=== PATIENT | male | born 1955 | race Caucasian/White ===

== ENCOUNTER 2021-06-29 14:00 | Outpatient (CLI) | payer MEDICARE, OTHER, SELFPAY ==
--- NOTE | ~2021-06-29 | US_ITS ---
EXAMINATION: US art doppler w press LE BI DATE: 06/29/2021 16:05 INDICATION: Peripheral vascular disease with numbness and tingling at the bilateral feet. TECHNIQUE: Segmental pressures and plethysmographic and Doppler waveforms of the brachial and lower e xtremity arteries were obtained. COMPARISON: None. FINDINGS: Cardiac arrhythmia is present. Right and left brachial artery pressures of 132 mm Hg and 120 mm Hg, r espectively, are concordant (normal difference <= 30 mmHg). The right and left high-thigh pressure in dices were unable to be obtained due to inability to occlude the vessels (normal > 1.2). The right ankle-brachial index (AYANNA) is 1.08 (normal >= 0.9-1). The right great toe-brachial index (T BI) is 0.70 (normal >= 0.6-0.8). The right lower extremity segmental pressure gradients are borderlin e increased between the right [id number]-bwx-[id number] popliteal artery and the arteries at the right ankle (no rmal gradients <= 20-30 mmHg between adjacent levels on the same leg or the same levels on the two le gs). Arterial waveforms are biphasic at the right common femoral, superficial femoral, popliteal and posterior tibial arteries and biphasic at the right dorsalis pedis artery with brisk systolic upstrok es throughout.. The left AYANNA is 1.20. The left TBI is 0.76. The left lower extremity segmental pressure gradients are borderline increased between the left bulb and okrot-bbu-kthq popliteal arteries. Arterial waveforms are triphasic at the left common femoral, superficial femoral and popliteal arteries and biphasic at the left posterior tibial and dorsalis pedis arteries with brisk systolic upstrokes throughout. IMPRESSION: 1. Normal AYANNA's and TBI's bilaterally. No significant occlusive disease. 2. Cardiac arrhythmia is present. Correlate with EKG. Reviewed, dictated and finalized at location A.
== END 2021-06-29 14:01 | disposition home or self-care (01) ==
LOC: ANHIMG 14:06
PROVIDERS: PCP Internal Medicine; Visit Provider Podiatrist Foot & Ankle Surgery
DX: I70.203 Unspecified atherosclerosis of native arteries of extremities, bilateral legs (principal); I49.9 Cardiac arrhythmia, unspecified
CPT/HCPCS: 93923

== ENCOUNTER 2023-05-04 01:26 | Day surgery (SDC) | payer MEDICARE, SELFPAY ==
[2023-04-25 13:11] VITALS: BMI 27.1
--- NOTE | 2023-05-03 20:48 | PM.HPGS ---
History of Present Illness History of Present Illness Consent: Risks, benefits, and alternatives have been discussed and questions answered. Patient agrees to proceed with procedure. Chief complaint: neoplasm screening Narrative: Isaias Mcclain is a 68 year old male who is referred for colon cancer screening. Review of Systems Review of Systems: All systems reviewed & are unremarkable except as noted in HPI and below PMFSH Social History Social History Smoking status: Never smoker Alcohol intake: current Drinks per week: 3 Substance use type: does not use Living arrangements: with family Spiritual care concerns: No Meds Home Medications and Allergies Home Medications Medication Instructions Recorded Confirmed Type ascorbic acid (vitamin C) 500 mg 500 mg PO DAILY 04/26/23 05/04/23 History tablet (Vitamin C) aspirin 325 mg tablet 325 mg PO DAILY 04/26/23 05/04/23 History atorvastatin 10 mg tablet 10 mg PO DAILY 04/26/23 05/04/23 History cholecalciferol (vitamin D3) 125 125 mcg PO DAILY 04/26/23 05/04/23 History mcg (5,000 unit) tablet (Vitamin D3) coQ10 (ubiquinol) 100 mg capsule 100 mg PO BID 04/26/23 05/04/23 History metoprolol tartrate 25 mg tablet 5 mg PO DAILY PRN Atrial 04/26/23 05/04/23 History Fibrillation vitamin B complex 1 tablet PO DAILY 04/26/23 05/04/23 History Allergies Allergy/AdvReac Type Severity Reaction Status Date / Time No Known Allergies Allergy Unverified 05/04/23 09:46 Exam Resp: Auscultation: clear to auscultation bilaterally Cardio: Rate: regular rate Rhythm: regular rhythm GI: GI Palp: Yes Soft to palpation and No Tenderness to palpation present (GI) Assessment and Plan Assessment and plan (1) Colon cancer screening: Code(s): Z12.11 - Encounter for screening for malignant neoplasm of colon Status: Acute Assessment and Plan: Colonoscopy with possible biopsy or polypectomy or cautery or injection of substances.
[2023-05-04 09:50] VITALS: BP 152/72; PULSE 63; RESP 18; TEMP 36.6; O2SAT 100
[2023-05-04] MEDS: LACTATED RINGERS 1,000 ML 150 ML IV CONT (09:52)
--- NOTE | 2023-05-04 10:35 | P.PNAN_ITS ---
Anes - Initial Pre Proc Eval Procedure: Operation Date: 05/04/23 11:00 Proposed Procedures p Screening Colonoscopy - Kem Day MD Date/Time: 05/04/23 10:35 Surgeon: Kem Day MD Pre Op Diagnosis: neoplasm screening Patient Data Age: 68 Gender: M Height: 1.85 m Weight: 92.3 kg Last Vital Signs Temp 97.9 F 05/04/23 09:50 Pulse 63 05/04/23 09:50 Resp 18 05/04/23 09:50 BP 152/72 H 05/04/23 09:50 Pulse Ox 100 05/04/23 09:50 O2 Del Method Room Air 05/04/23 09:50 Allergies Allergy/AdvReac Type Severity Reaction Status Date / Time No Known Allergies Allergy Unverified 05/04/23 09:46 Home Medications Medication Instructions Recorded Confirmed Type ascorbic acid (vitamin C) 500 mg 500 mg PO DAILY 04/26/23 05/04/23 History tablet (Vitamin C) aspirin 325 mg tablet 325 mg PO DAILY 04/26/23 05/04/23 History atorvastatin 10 mg tablet 10 mg PO DAILY 04/26/23 05/04/23 History cholecalciferol (vitamin D3) 125 125 mcg PO DAILY 04/26/23 05/04/23 History mcg (5,000 unit) tablet (Vitamin D3) coQ10 (ubiquinol) 100 mg capsule 100 mg PO BID 04/26/23 05/04/23 History metoprolol tartrate 25 mg tablet 5 mg PO DAILY PRN Atrial 04/26/23 05/04/23 History Fibrillation vitamin B complex 1 tablet PO DAILY 04/26/23 05/04/23 History Patient hx anesthesia problems: none Family hx anesthesia problems: none Results Review: All pre-operative results and documents have been reviewed as part of the pre- operative evaluation. FORMERLY [facility], [facility]–1983 Social History Social History Smoking status: Never smoker Alcohol intake: current Drinks per week: 3 Substance use type: does not use Living arrangements: with family Spiritual care concerns: No Anes - Eval Final PreProcedure Day of Procedure 05/04/23 10:35 Patient weight: normal Heart: regular rate and rhythm Lungs: clear to auscultation Airway: Mallampati scale class II Neurological: alert and oriented Last oral intake: >/= 8 hours ASA classification: III Emergent: no Anesthetic plan: proceed Anesthesia type and monitoring: general GIVS and standard monitoring Results Review: All pre-operative results and documents have been reviewed as part of the pre- operative evaluation. Informed Consent: The patient's anesthetic plan and its attendant risks and benefits were discussed with the patient/family/POA. Questions were solicited and answers provided to the satisfaction of the patient/family/POA.
[2023-05-04 11:04] VITALS: BP 102/68; PULSE 60; RESP 16; O2SAT 96
[2023-05-04 11:14] VITALS: BP 108/71; PULSE 63; RESP 19; O2SAT 99
[2023-05-04 11:24] VITALS: BP 119/74; PULSE 63; RESP 21; O2SAT 99
== END 2023-05-04 11:28 | disposition home or self-care (01) ==
PROVIDERS: PCP Internal Medicine; Visit Provider Internal Medicine Gastroenterology
PROC: 0DJD8ZZ Inspection of Lower Intestinal Tract, Via Natural or Artificial Opening Endoscopic (ICD-10-PCS; CPT 45378; principal; 2023-05-04 11:00)
DX: Z12.11 Encounter for screening for malignant neoplasm of colon (principal); K64.8 Other hemorrhoids; Z79.82 Long term (current) use of aspirin
CPT/HCPCS: G0121; J2704; J7120

== ENCOUNTER 2023-07-16 13:58 | Observation (INO) | payer MEDICARE, OTHER, SELFPAY ==
[2023-07-16] VITALS (22 sets, daily range): BP systolic 133–153; BP diastolic 66–86; PULSE 52–94; RESP 16–18; TEMP 36.4–36.6; O2SAT 95–100; BMI 26.8
--- NOTE | ~2023-07-16 | CT_ITS ---
EXAMINATION: CT brain wo con DATE: 07/16/2023 15:52 INDICATION: Dizziness . TECHNIQUE: Computed tomography (CT) of the head was performed without intravenous contrast. The mA wa s adjusted according to patient size. Iterative reconstruction technique was employed. The dose-lengt h product was 605.33 mGy-cm. COMPARISON: None. FINDINGS: No acute intracranial hemorrhage or extra-axial fluid collection. No hydrocephalus, mass, or herniation. No acute ischemic infarct. Unremarkable dural venous sinus attenuation. No acute osseous abnormality. The aerated spaces are clear. Atherosclerotic intracranial calcifications. IMPRESSION: No acute intracranial process. Reviewed, dictated and finalized at location K.
--- NOTE | ~2023-07-16 | MR_ITS ---
EXAMINATION: MR brain/brain stem wo/w con DATE: 07/17/2023 08:41 INDICATION: Dizziness with double vision TECHNIQUE: Magnetic resonance imaging (MRI) of the brain and brainstem was performed without and with 18 mL MultiHance intravenous contrast. Sequences included sagittal and axial T1-weighted SE, axial d iffusion-weighted FS EPI ASSET, axial T2*-weighted GRE, axial T2-weighted FLAIR Propeller, and axial T2-weighted Propeller. Postcontrast axial and coronal T1-weighted SE was obtained. Apparent diffusion coefficient (ADC) maps were created. COMPARISON: CT brain and CTA brain carotid 07/16/2023. FINDINGS: No abnormal restricted diffusion to suggest acute ischemic infarct. No MRI evidence of hemorrhage or extra-axial collection. No suspicious foci of susceptibility to suggest prior intraparenchymal hemorr debbie. Normal white matter signal. No evidence of advanced or lobar predominant parenchymal volume los s. The basilar cisterns are patent. Flow voids are preserved. Retention cyst/polyp in the left maxill jasmine sinus. Paranasal sinuses are otherwise within normal limits. Globes and orbital contents are with in normal limits. No abnormal enhancing lesions detected. IMPRESSION: Unremarkable MRI brain findings. Reviewed, dictated and finalized at location K.
--- NOTE | ~2023-07-16 | XR_ITS ---
EXAMINATION: XR chest 1V portable Exam Date/Time: 07/16/2023 15:37 CDT HISTORY: Dizziness Comparison: 04/30/2018. RESULT: Lines, tubes, and devices: None. Lungs and pleura: Clear. Cardiomediastinal silhouette: Stable. Other: No acute osseous or upper abdominal finding. IMPRESSION: No acute cardiopulmonary process. Reviewed, dictated and finalized at location K.
--- NOTE | ~2023-07-16 | CT_ITS ---
EXAMINATION: CTA brain carotid DATE: 07/16/2023 17:27 INDICATION: Double vision TECHNIQUE: Computed tomographic angiography (CTA) of the head and neck was performed with 100 mL Omni paque-350 intravenous contrast. Automated exposure control and iterative reconstruction technique wer e employed. . The dose-length product was 1223.00 mGy-cm. Maximum intensity projection and volume re ndered 3D-reconstructions were created by the technologist on a separate workstation. COMPARISON: CT brain, same date. FINDINGS: CTA HEAD: No large vessel occlusion, aneurysm, high flow vascular malformation, nidus or extravasation. Patent cerebral veins. Symmetric parenchymal enhancement. CTA NECK: Aortic arch and proximal great vessels: Normal arch anatomy. Right common carotid, carotid bifurcation, and internal carotid artery: No significant plaque.There i s 0% stenosis of the proximal right internal carotid artery relative to normal distal artery lumen di ameter (NASCET criteria). Left common carotid, carotid bifurcation, and internal carotid artery: No significant plaque.There is 0% stenosis of the proximal left internal carotid artery relative to normal distal artery lumen diam eter (NASCET criteria). Vertebral arteries: No significant plaque or stenosis. Right vertebral artery is dominant, Other findings: Degenerative change in the cervical spine. Retention cyst/polyp in the left inferior maxillary sinus. IMPRESSION: No large vessel occlusion. No significant carotid or vertebral artery stenosis. Reviewed, dictated and finalized at location K.
--- NOTE | 2023-07-16 15:08 | ED.DIZZY ---
HPI - Dizziness General Chief Complaint: Dizziness Stated Complaint: dizziness, lightheaded Time Seen by Provider: 07/16/23 15:07 Source: patient and family Mode of arrival: ambulatory Limitations: no limitations History of Present Illness HPI Narrative: 68 years old white male presented to the ED with lightheadedness and double vision. Patient was doing some work inside the house like cleaning dishes, developed lightheadedness around 9 AM, few minutes later developed double vision which resolves when he closes either eye. He denies any fever, chills, nausea, vomiting, headache, chest pain, shortness of breath, palpitation. Or similar symptoms. Patient's symptoms have been steady since the beginning until arrival to the emergency room. History of paroxysmal A-fib, currently on aspirin 324 mg once a day. Patient had 2 tablets today after he developed the above symptoms. History of hyperlipidemia, does not smoke or uses drugs, drinks occasionally. Patient have peripheral flashlight like feeling 2 months ago and was seen by his food safety coordinator and work-up showed nothing significant. He does not have that feeling anymore. Related Data Home Medications Medication Instructions Recorded Confirmed ascorbic acid (vitamin C) 500 mg 500 mg PO DAILY 04/26/23 05/04/23 tablet (Vitamin C) aspirin 325 mg tablet 325 mg PO DAILY 04/26/23 05/04/23 atorvastatin 10 mg tablet 10 mg PO DAILY 04/26/23 05/04/23 cholecalciferol (vitamin D3) 125 125 mcg PO DAILY 04/26/23 05/04/23 mcg (5,000 unit) tablet (Vitamin D3) coQ10 (ubiquinol) 100 mg capsule 100 mg PO BID 04/26/23 05/04/23 metoprolol tartrate 25 mg tablet 5 mg PO DAILY PRN Atrial 04/26/23 05/04/23 Fibrillation vitamin B complex 1 tablet PO DAILY 04/26/23 05/04/23 Allergies Allergy/AdvReac Type Severity Reaction Status Date / Time No Known Allergies Allergy Unverified 07/16/23 13:59 Review of Systems Review of Systems: All systems reviewed & are unremarkable except as noted in HPI and below PMFSH Social History Social History Smoking status: Never smoker Alcohol intake: current Drinks per week: 3 Substance use type: does not use Living arrangements: with family Spiritual care concerns: No Exam Narrative: General appearance: Well-developed, well-nourished Skin: Normal color Head: Normocephalic, nontraumatic Eyes: Clear conjunctiva, left eye horizontal nystagmus ENT: Oropharynx normal, ears normal, nose normal Neck: Supple, nontender Chest and respiratory: Airway patent, no respiratory distress, no accessory muscle use Heart: Regular rate/rhythm Abdomen: Soft, nontender, no organomegaly, quiet bowel sounds Vascular: Normal peripheral pulses, normal capillary refill. Musculoskeletal: Normal range of motion, nontender back Neurologic: Alert and oriented ?3, BILINGUAL SALES CONSULTANT is normal as tested, no gross motor deficit Course Reevaluation(s) Reevaluation #1: Patient's symptoms are the same since arrival to the emergency room until this minute. Date: 07/16/23 Time: 17:03 Consultations Consultation #1: Dr. Li, food safety coordinator at [facility] He states that nothing can be done at this time or over the weekend. Patient need to call the ophthalmology clinic which is opened 8 to 5 PM, phone #[phone] on Tuesday morning. After hour clinic [phone] Date: 07/16/23 Time: 19:32 Consultation #2: Dr. Cardenas Admit to hospitalist Date: 07/16/23 Time: 19:32 Vital Signs Vital signs: Vital Signs Pulse Oximetry 97 07/16/23 14:05 Temperature 36.4 C L 07/16/23 14:18 Pulse Rate 53 L 07/16/23 19:19 Respirator
--- NOTE | 2023-07-16 15:09 | ECG_ITS ---
Measurements Intervals [place] Rate: 51 P: 59 [place]: 194 QRS: 18 QRSD: 90 T: 21 QT: 438 QTc: 406 Interpretive Statements SINUS BRADYCARDIA LOW VOLTAGE- PRECORDIAL LEADS BORDERLINE ECG NO PREVIOUS ECG AVAILABLE FOR COMPARISON Electronically Signed On 07-16-2023 20:29:03 CDT by Eric Robbins D.O.
[2023-07-16 15:45] LABS: Basophils Percent Auto 0.6 % (0.2-1.2); Eosinophils Absolute Auto 0.1 K/mm3 (0-0.3); Eosinophils Percent Auto 1.8 % (0-4.4); Hematocrit 43.6 % (42.0-52.0); Hemoglobin 14.8 g/dL (14.0-18.0); Immature Granulocyte Absolute 0.01 K/mm3 (0.00-0.031); Immature Granulocyte Percent A 0.2 % (0-0.5); Lymphocytes Absolute Auto 1.34 K/mm3 (0.9-3.2); Lymphocytes Percent Auto 21.4 % (18.3-44.2); Mean Corpuscular HGB Conc 33.9 g/dl (32-36); Mean Corpuscular Volume 91.4 fl (80-100); Mean Platelet Volume 9.4 fl (7.4-10.4); Monocytes Absolute Auto 0.5 K/mm3 (0.1-0.6); Monocytes Percent Auto 8.1 % (2.6-8.5); Neutrophils Absolute Auto 4.3 K/mm3 (1.3-6.7); Neutrophils Percent Auto 67.9 % (45.5-73.1); Platelet Count Result 195 k/mm3 (150-375); Red Blood Count 4.77 M/mm3 (4.6-6.20); White Blood Count 6.3 K/mm3 (4.5-10.0)
[2023-07-16 15:47] LABS: Appearance Urine Clear (Clear); Bilirubin Urine Negative (Negative); Blood Urine Negative (Negative); Color Urine Yellow (Yellow); Glucose Urine UA Negative (Negative); Ketones Urine Negative (Negative); Leukocyte Esterase Ur Negative LEU/UL (Negative); Nitrate Urine Negative (Negative); Protein Urine Negative (Negative); Specific Grav Ur 1.021 (1.001-1.035); Urobilinogen Urine 0.2 mg/dL (<2.0)
[2023-07-16 15:56] LABS: Prothrombin Time 13.1 Seconds (11.1-14.7)
[2023-07-16 16:00] LABS: Add Urine Microscopic? NO
[2023-07-16 16:02] LABS: Amphetamine Screen Urine Negative (Negative); Barbiturate Screen Urine Negative (Negative); Benzodiazepines Screen Urine Negative (Negative); Cannabinoid Screen Urine Negative (Negative); Cocaine Screen Urine Negative (Negative); Methadone Screen Urine Negative (Negative); Opiate Screen Urine Negative (Negative); Phencyclidine Screen Urine Negative (Negative)
[2023-07-16 16:04] LABS: Alanine Aminotransferase 28 U/L (6-50); Albumin Level 4.3 g/dL (3.5-5.1); Alkaline Phosphatase 57 U/L (38-126); Anion Gap 1 mmol/L (8-16); Aspartate Amino Transferase 35 U/L (17-59); Bilirubin,Total 1.3 mg/dL (0.2-1.3); Blood Urea Nitrogen 23 mg/dL (9-20); Calcium 9.3 mg/dL (8.4-10.2); Carbon Dioxide 32 mmol/L (22-30); Chloride 107 mmol/L (98-107); Estimated CRCL calculation 55 ml/min; Estimated Glomerular Filt Rate 55; Glucose 111 mg/dL (65-110); Potassium 4.4 mmol/L (3.4-5.0); Sodium 140 mmol/L (137-145)
[2023-07-16 16:16] LABS: Troponin I < 0.012 ng/mL (0.000-0.034)
--- NOTE | 2023-07-16 21:23 | ADMGEN ---
This patient, Isaias Mcclain, was admitted to Medical Room 241-01. Patient/family oriented to hospital policies and general routines including ID bracelet, bed and alarms, visiting hours, pain management, procedures, bathroom and other care routines, personal items, smoking policy, room service/diet, and visiting hours. Information on how to activate the Rapid Response Team has been discussed. Patient/Family are encouraged to report perceived risks to care and to ask questions if they do not understand what they are told or what they should do.
--- NOTE | 2023-07-16 23:37 | PM.IMHP ---
H&P: HPI History of Present Illness Date/Time: 07/16/23 23:37 Chief Complaint: Patient came to the ER for evaluation for his lightheadedness and double vision Narrative: He is a very pleasant gentleman who was working inside the house today cleaning dishes when he developed lightheadedness around 9:00 a.m., and a few minutes later he started double vision which resolved when he closes either eye. He got concerned and came to the ER for evaluation. He has a history of persistent atrial fibrillation for which he takes aspirin. He took 2 aspirins today after he developed above symptoms. He has his heart rate monitoring through his watch which indicates if he goes into AFib, which has not kicked off today. He had one episode of peripheral flash light feeling 2 months ago and was seen by a local boring machine set up operator jig and workup was negative. He does not complain of any such feeling any more. ER physician did a stroke workup which was negative. ER physician spoke with the boring machine set up operator jig in [facility] who recommended MRI in the morning followed by ophthalmology evaluation locally or in [facility]. Neurology was consulted who had similar recommendations. Patient is being admitted overnight for close monitoring and MRI in a.m. Review of Systems Review of Systems: he denies any chest pain, palpitation, fever rigor chills, nausea vomiting, dizziness loss of consciousness All systems reviewed & are unremarkable except as noted in HPI and below PMFSH Past Medical History Medical History (Updated 07/16/23 @ 23:56 by Hiram Tellez MD) Paroxysmal atrial fibrillation Family History Family History Mother Congestive heart failure Renal cancer Father Hypertension Lung cancer Social History Social History Smoking status: Never smoker Alcohol intake: never Drinks per week: 3 Substance use: never Substance use type: does not use Lack of Transportation: No Lack of Food: Never True Current Housing: I Have Housing Concerned About Future Housing: No Difficulty Paying Gas/Electric Bills: No Difficulty Paying for Meds: No Currently Unemployed: No Education: Bachelor's Degree Difficulty w/ Childcare or Family Care: No Living arrangements: with family Spiritual care concerns: No Meds Home Medications and Allergies Home Medications Medication Instructions Recorded Confirmed Type ascorbic acid (vitamin C) 500 mg 500 mg PO DAILY 04/26/23 07/16/23 History tablet (Vitamin C) aspirin 325 mg tablet 325 mg PO DAILY 04/26/23 07/16/23 History atorvastatin 10 mg tablet 20 mg PO DAILY 04/26/23 07/16/23 History cholecalciferol (vitamin D3) 125 125 mcg PO DAILY 04/26/23 07/16/23 History mcg (5,000 unit) tablet (Vitamin D3) coQ10 (ubiquinol) 100 mg capsule 100 mg PO BID 04/26/23 07/16/23 History metoprolol tartrate 25 mg tablet 5 mg PO DAILY PRN Atrial 04/26/23 07/16/23 History Fibrillation vitamin B complex 1 tablet PO DAILY 04/26/23 07/16/23 History Allergies Allergy/AdvReac Type Severity Reaction Status Date / Time No Known Allergies Allergy Unverified 07/16/23 13:59 Vital Signs Vital Signs - 24 hr 07/16/23 14:18 07/16/23 14:05 07/16/23 14:15 Temperature 36.4 C L Pulse Rate 53 L Respiratory Rate 17 Blood Pressure 151/80 H Pulse Oximetry 100 97 98 Oxygen Delivery Room Air 07/16/23 14:25 07/16/23 14:30 07/16/23 14:31 Temperature Pulse Rate Respiratory Rate Blood Pressure 151/80 H 151/73 H Pulse Oximetry 99 99 100 Oxygen Delivery 07/16/23 14:45 07/16/23 15:02 07/16/23 15:15 Temperature Pulse Rate Respiratory Rate Blood Pressure Pulse Oximetry 96 99 95 Oxygen Delivery 07/16/23 15:30 07/16/23 15:53 07/16/23 15:54 Temperature Pulse Rate Respiratory Rate Blood Pressure 143/66 H Pulse Oximetry 100 99 100 Oxygen Del
[2023-07-17] VITALS (7 sets, daily range): BP systolic 120–139; BP diastolic 66–73; PULSE 50–73; RESP 14–16; TEMP 36.5–36.9; O2SAT 96–100
[2023-07-17 05:50] LABS: Anion Gap 3 mmol/L (8-16); Blood Urea Nitrogen 19 mg/dL (9-20); Calcium 8.9 mg/dL (8.4-10.2); Carbon Dioxide 31 mmol/L (22-30); Chloride 106 mmol/L (98-107); Estimated CRCL calculation 65 ml/min; Estimated Glomerular Filt Rate > 60; Glucose 86 mg/dL (65-110); Potassium 4.2 mmol/L (3.4-5.0); Sodium 140 mmol/L (137-145)
--- NOTE | 2023-07-17 09:07 | PC.NURSE ---
pt refused all morning medications. States he occasionally misses a day of his atorvastatin and it's no big deal . Stated the vitamins are just over the counter and he does not want them at this time.
--- NOTE | 2023-07-17 14:52 | WPDNEURCNPN ---
Assessment and Plan Assessment and plan (1) Double vision with both eyes open: Code(s): H53.2 - Diplopia Status: Acute (2) Dizziness: Code(s): R42 - Dizziness and giddiness Status: Acute (3) Paroxysmal atrial fibrillation: Code(s): I48.0 - Paroxysmal atrial fibrillation Status: Acute Plan Mr. Mcclain is a 68 year old male with a history of atrial fibrillation presenting for evaluation of sudden onset double vision. Evidence of left abducens palsy on exam which likely explains his symptoms. MRI report is pending to evaluate for brainstem infarct. . - If there is an acute stroke on MRI: - Start anticoagulation -- likely Eliquis 5mg BID - Will need Surface echocardiogram with bubble study - Check LDL (goal<70) and A1c - Continue Aspirin and Lipitor for now; If he is started on anticoagulation, can discontinue aspirin Consult date: 07/17/23 Reason for consult: Double vision HPI: Isaias Mcclain is a 68 year old male with a history of atrial fibrillation presenting due to acute onset double vision. Patient woke up yesterday feeling normal, but later in the morning started noticing double vsion vision (vertical). He also experienced lightheadedness and vertigo. Since then the double vision is not constant but does occur when he tries to fixate on things or look to the right. He denieis any focal weakness or numbness or speech changes. When he presented to [place] ED his CT head was negative for any acute changes. CTA brain/carotid showed no evidence of stenosis or occlusion. Blood pressure was initially elevated to the 150s systolic but has normalized since then. He takes Aspiring 325mg daily and Lipitor 20mg daily. MRI brain done this morning, has not been read yet. On my preliminary read there is very subtle punctate lesion on DWI with ADC correlate in the left marissa. Review of Systems Constitutional: Constitutional: Denies chills, Denies fever(s) and Denies weight loss Eyes: Eyes: Reports diplopia and Denies loss of vision ENT: Reports dizziness, Denies hearing loss and Denies tinnitus Cardiovascular: Cardiovascular: Denies chest pain, Denies syncope and Denies dyspnea Respiratory: Respiratory: Denies cough, Denies dyspnea and Denies wheezing Gastrointestinal: Gastrointestinal: Denies abdominal pain, Denies change in bowel habits and Denies vomiting Genitourinary: Genitourinary: Denies urinary incontinence Musculoskeletal: Musculoskeletal: Denies arthralgias and Denies joint swelling Integumentary/Breasts: Skin/Breast: Denies new lesions and Denies rash Neurologic: Reports as per HPI, Denies dizziness, Denies syncope and Denies loss of vision Psychiatric: Psychiatric: Denies anxiety and Denies depression Endocrine: Endocrine: Denies cold intolerance and Denies heat intolerance Hematologic/Lymphatic: Hematologic/Lymphatic: Denies easy bleeding and Denies easy bruising Allergic/Immunologic: Allergic/Immunologic: Denies no additional allergic/immunologic complaints and Denies wheezing PMFSH Past Medical History Medical History Paroxysmal atrial fibrillation Family History Family History Mother Congestive heart failure Renal cancer Father Hypertension Lung cancer Social History Social History Smoking status: Never smoker Alcohol intake: never Drinks per week: 3 Substance use: never Substance use type: does not use Lack of Transportation: No Lack of Food: Never True Current Housing: I Have Housing Concerned About Future Housing: No Difficulty Paying Gas/Electric Bills: No Difficulty Paying for Meds: No Currently Unemployed: No Education: Bachelor's Degree Difficulty w/ Childcare or Family Care: No Living arrangements: with family Spiritual care concerns: No Meds Home
--- NOTE | 2023-07-17 15:08 | PM.IMPN ---
Progress Note: A&P Assessment and Plan (1) Double vision with both eyes open: Code(s): H53.2 - Diplopia Status: Acute Assessment and Plan: Continues cardiac tele monitoring Neurovascular checks q.[address] and head and neck CTA ordered which ruled out any hemorrhage/infarction or any intracranial findings MRI brain / brainstem with and without contrast pending Neurology consult for evaluation and further recommendations (2) Paroxysmal atrial fibrillation: Code(s): I48.0 - Paroxysmal atrial fibrillation Status: Acute Assessment and Plan: continue aspirin and metoprolol. Subjective Date/time seen: 07/17/23 15:08 Interval history: Patient states that he woke up in the morning and was experiencing double vision. He states that his images are 1 on top of the other for example when he looks at the TV there was 1 screen on top of another screen. He did recently have some flashing lights that was evaluated by an mix technician Which was benign in nature. He does have a history of AFib but no history of stroke or MT. he denies any black out of his vision. He did have some disequilibrium with some mild nausea that has resolved. He denies any vertigo symptoms to me and states he felt more off balance than anything. Exam Narrative: GENERAL: Comfortable, no acute distress HENMT: moist mucous membranes EYES: EOM intact b/l NECK: no lymphadenopathy RESPIRATORY: clear to auscultation CARDIO: RRR GI: soft, nontender, bowel sounds present SKIN: no rashes EXTREMITIES: no edema, redness or tenderness Objective Data Vital Signs Vital Signs: Vital Signs - 24 hr 07/16/23 15:15 07/16/23 15:30 07/16/23 15:53 Temperature Pulse Rate Respiratory Rate Blood Pressure Pulse Oximetry 95 100 99 Oxygen Delivery 07/16/23 15:54 07/16/23 16:00 07/16/23 16:01 Temperature Pulse Rate Respiratory Rate Blood Pressure 143/66 H 145/74 H Pulse Oximetry 100 97 98 Oxygen Delivery 07/16/23 16:15 07/16/23 16:16 07/16/23 16:30 Temperature Pulse Rate Respiratory Rate Blood Pressure 136/75 Pulse Oximetry 97 99 Oxygen Delivery 07/16/23 16:31 07/16/23 19:19 07/16/23 21:35 Temperature Pulse Rate 52 L 53 L Respiratory Rate 18 18 Blood Pressure 145/77 H 133/70 Pulse Oximetry 98 99 Oxygen Delivery Room Air 07/16/23 21:24 07/16/23 21:24 07/16/23 21:28 Temperature 97.8 F Pulse Rate 94 94 60 Respiratory Rate 16 Blood Pressure 153/86 H 153/86 H 146/86 H Pulse Oximetry 99 Oxygen Delivery 07/16/23 21:30 07/17/23 00:00 07/17/23 00:39 Temperature 97.9 F Pulse Rate 71 50 L 73 Respiratory Rate 16 Blood Pressure 146/81 H 128/68 Pulse Oximetry 96 Oxygen Delivery 07/17/23 04:00 07/17/23 04:29 07/17/23 08:00 Temperature 97.7 F 98.4 F Pulse Rate 52 L 60 70 Respiratory Rate 14 16 Blood Pressure 132/66 122/68 Pulse Oximetry 96 100 Oxygen Delivery 07/17/23 08:00 07/17/23 12:00 Temperature 98.2 F Pulse Rate 70 71 Respiratory Rate 16 16 Blood Pressure 120/70 Pulse Oximetry 100 100 Oxygen Delivery Room Air Intake/Output Intake/Output: Intake & Output 07/14/23 07/15/23 07/16/23 07/17/23 23:59 23:59 23:59 23:59 Intake Total 730 Balance 730 Meds/Results Medications: Active Medications Generic Name Dose Route Start Last Admin Trade Name Moises PRN Reason Stop Dose Admin Acetaminophen 650 mg 07/16/23 19:46 Acetaminophen 325 Mg Tablet PO Q4H PRN Mild Pain (1-3) or Fever Ascorbic Acid 500 mg 07/17/23 09:00 07/17/23 09:07 Ascorbic Acid 500 Mg Tablet PO Not Given DAILY [facility] Aspirin 325 mg 07/17/23 08:00 07/17/23 09:07 Aspirin 325 Mg Tablet PO Not Given DAILY@0800 [facility] Atorvastatin Calcium 20 mg 07/17/23 09:00 07/17/23 09:07 Atorvastatin 20 Mg Tablet PO Not Given DAILY [facility] Enoxaparin Sodium 40 mg 07/17
--- NOTE | 2023-07-17 16:27 | PM.DS ---
DS: Admitting Diagnosis Discharge Date 07/18/23 Admitting Diagnosis Diplopia DS: Discharge Diagnosis Discharge Diagnosis (1) Double vision with both eyes open: Code(s): H53.2 - Diplopia Status: Acute (2) Paroxysmal atrial fibrillation: Code(s): I48.0 - Paroxysmal atrial fibrillation Status: Acute DS: Summary Hospital Course Hospital Course: This is a 68 year old with a past medical history of hypertension, AFib and hyperlipidemia. He takes aspirin for his AFib. He presented to the ED on 07/16/2023 due to developing lightheadedness and double vision. His double vision depicted images 1 on top of the other. He also stated that it is not present when he closes 1 eye. He had recently been seen by a horse rider 2 months prior for peripheral flashing lights in the workup was negative. CTA of the head and neck no findings of infarct. Patient was admitted for an MRI. MRI with no acute intracranial process. Neurology consulted on the patient. After MRI was read neurology okayed him for discharge although they stated they would contact him in the morning. His labs and vital signs stable and he is medically clear for discharge at this time. Time Spent with Patient Time attestation: Total time spent providing and/or coordinating discharge services: Exam Narrative: GENERAL: Comfortable, no acute distress HENMT: moist mucous membranes EYES: EOM intact b/l NECK: no lymphadenopathy RESPIRATORY: clear to auscultation CARDIO: RRR GI: soft, nontender, bowel sounds present SKIN: no rashes EXTREMITIES: no edema, redness or tenderness DS: Data Data Completed and Pending Labs on day of discharge: Labs from last 24 hours 07/17/23 05:01 Sodium 140 Potassium 4.2 Chloride 106 Carbon Dioxide 31 H Anion Gap 3 L BUN 19 Creatinine 1.10 Estim Creat Clear Calc 65 Estimated GFR > 60 Glucose 86 Calcium 8.9 Discharge Plan Discharge Attending physician on discharge: Martin Rolon Consulting providers: Tonia Cardenas Discharging Clinician: Deirdre Sanchez Patient Disposition: Home, Self-Care Activity: as tolerated Diet: regular Discharge Instructions: Discharge Instructions: Please take all medications as prescribed Stay hydrated Please return to the hospital if you develop chest pain, shortness of breath, if your symptoms worsen, fever >100.4 Follow up with your primary care provider in 7-10 days Keep appointment with horse rider. Neurologist will contact you regarding your MRI scan. Thank you for choosing [facility]! Patient Instructions: Antibiotic Form Stand Alone Forms: General Discharge Information Follow-up/Referrals: Nir,MD Leobardo [Primary Care Provider] - Tonia Cardenas MD [Physician] - Call for Appointment Discharge Medications: Continued atorvastatin 10 mg tablet 20 mg PO DAILY aspirin 325 mg Tablet 325 mg PO DAILY ascorbic acid (vitamin C) [Vitamin C] 500 mg Tablet 500 mg PO DAILY vitamin B complex Tablet 1 tablet PO DAILY metoprolol tartrate 25 mg Tablet 25 mg PO DAILY PRN (Reason: Atrial Fibrillation) cholecalciferol (vitamin D3) [Vitamin D3] 125 mcg (5,000 unit) Tablet 125 mcg PO DAILY coQ10 (ubiquinol) 100 mg Capsule 100 mg PO BID Date of admission: 07/16/23 19:46 Primary Care Provider: NirLeobardo Admitting Provider: Hiram Tellez Attending physician on admission: Hiram Tellez Condition: Stable
== END 2023-07-17 17:00 | disposition home or self-care (01) ==
LOC: ANHED 19:44 → ANH2MED 20:48
PROVIDERS: Admitting Provider Family Medicine; Emergency Provider Emergency Medicine; PCP Internal Medicine; Visit Provider Internal Medicine
DX: H53.2 Diplopia (principal); H49.22 Sixth [abducent] nerve palsy, left eye; I48.0 Paroxysmal atrial fibrillation; E78.5 Hyperlipidemia, unspecified; R00.1 Bradycardia, unspecified; F10.90 Alcohol use, unspecified, uncomplicated; Z79.82 Long term (current) use of aspirin; Z79.899 Other long term (current) drug therapy
CPT/HCPCS: 36415; 70450; 70496; 70498; 70553; 71045; 80048; 80053; 80307; 81003; 84484; 85025; 85610; 85730; 93005; 99285; A9577; G0378; Q9967

== ENCOUNTER 2023-11-30 01:02 | Day surgery (SDC) | payer MEDICARE, SELFPAY ==
[2023-11-29 12:05] VITALS: BMI 27.1
[2023-11-30] VITALS (11 sets, daily range): BP systolic 102–135; BP diastolic 62–96; PULSE 69–99; RESP 12–18; TEMP 36.8; O2SAT 92–100
--- NOTE | 2023-11-30 07:00 | ECG_ITS ---
Measurements Intervals [place] Rate: 91 P: PA: 0 QRS: 21 QRSD: 80 T: 4 QT: 362 QTc: 446 Interpretive Statements ATRIAL FIBRILLATION LOW QRS VOLTAGE IN PRECORDIAL LEADS [QRS DEFLECTION < 1.0 mV IN CHEST LEADS] ABNORMAL RHYTHM ECG COMPARED TO ECG 07/16/2023 15:21:13 ATRIAL FIBRILLATION NOW PRESENT Electronically Signed On 11-30-2023 11:52:30 [employer] by Adria Page M.D.
[2023-11-30 07:53] LABS: Anion Gap 7 mmol/L (8-16); Blood Urea Nitrogen 25 mg/dL (9-20); Calcium 9.4 mg/dL (8.4-10.2); Carbon Dioxide 26 mmol/L (22-30); Chloride 108 mmol/L (98-107); Estimated CRCL calculation 55 ml/min; Estimated Glomerular Filt Rate 55; Glucose 93 mg/dL (65-110); Magnesium 2.4 mg/dL (1.6-2.3); Potassium 4.2 mmol/L (3.4-5.0); Sodium 141 mmol/L (137-145)
--- NOTE | 2023-11-30 09:17 | WPDMODSED ---
Moderate Sedation Note-Pt Data Patient Data Diagnosis: Atrial fibrillation Present Complaint: atrial fibrillation Procedure to be performed/Plan: multiplanar transesophageal echocardiography with color flow and pulse wave Doppler Electrical cardioversion Moderate sedation Allergies Allergy/AdvReac Type Severity Reaction Status Date / Time No Known Allergies Allergy Unverified 07/16/23 13:59 Home Medications Medication Instructions Recorded Confirmed Type ascorbic acid (vitamin C) 500 mg 500 mg PO DAILY 04/26/23 11/29/23 History tablet (Vitamin C) atorvastatin 10 mg tablet 20 mg PO DAILY 04/26/23 11/29/23 History cholecalciferol (vitamin D3) 125 125 mcg PO DAILY 04/26/23 11/29/23 History mcg (5,000 unit) tablet (Vitamin D3) coQ10 (ubiquinol) 100 mg capsule 100 mg PO BID 04/26/23 11/29/23 History metoprolol tartrate 25 mg tablet 25 mg PO DAILY PRN Atrial 04/26/23 11/29/23 History Fibrillation vitamin B complex 1 tablet PO DAILY 04/26/23 11/29/23 History apixaban 5 mg tablet (Eliquis) 5 mg PO BID 11/29/23 11/29/23 History Current Medications: Active Medications Sodium Chloride (Normal Saline Iv) 1,000 mls @ 30 mls/hr IV CONT .Q24H MOLLY Sedation/Anesthesia: No previous sedation/anesthesia problems (including family history). [facility] Past Medical History Medical History Paroxysmal atrial fibrillation Family History Family History Mother Congestive heart failure Renal cancer Father Hypertension Lung cancer Social History Social History Smoking status: Never smoker Alcohol intake: former Drinks per week: 3 Substance use: never Substance use type: does not use Lack of Transportation: No Lack of Food: Never True Current Housing: I Have Housing Concerned About Future Housing: No Difficulty Paying Gas/Electric Bills: No Difficulty Paying for Meds: No Currently Unemployed: No Education: Bachelor's Degree Difficulty w/ Childcare or Family Care: No Living arrangements: with family Spiritual care concerns: No Mod Sed Physical Exam Physical Exam Pre Procedural Exam: Normal: Appearance, Eyes, Ears, Nose, Neck, Throat, Airway, Lungs, Heart Size, Heart Rate, Neuro Exam, Abdomen, Extremities and Skin and Variation: Heart Rhythm ( irregular irregular) Hours since solid foods: 12 Hours since liquid intake: 12 Mallampati Classification: class II Internal Medicine - PN: Obj Da Vital Signs Vital Signs: Vital Signs - 24 hr 11/30/23 07:50 11/30/23 08:30 Temperature 36.8 C Pulse Rate 81 78 Respiratory Rate 17 16 Blood Pressure 113/82 124/89 Pulse Oximetry 98 95 Oxygen Delivery Room Air Room Air Meds/Results Medications: Active Medications Generic Name Dose Route Start Last Admin Trade Name Freq PRN Reason Stop Dose Admin Sodium Chloride 1,000 mls @ 30 mls/hr 11/30/23 07:00 Normal Saline Iv IV CONT .Q24H MOLLY Labs 11/30/23 07:35 Labs: Laboratory Results - last 24 hr 11/30/23 07:35 Sodium 141 Potassium 4.2 Chloride 108 H Carbon Dioxide 26 Anion Gap 7 L BUN 25 H Creatinine 1.30 Estim Creat Clear Calc 55 Estimated GFR 55 L Glucose 93 Calcium 9.4 Magnesium 2.4 H ASA Classification/Sedation ASA Classification/Sedation ASA Class: II Emergent: No Risks: Risks, benefits and alternatives explained and patient/family accepted plan for sedation. Patient re-evaluated immediately prior to sedation.
--- NOTE | 2023-11-30 09:35 | WPDTEECHO ---
ANABELL TransEsophageal Echocardiogram Date of procedure: 11/30/23 Procedure Type: multiplanar transesophageal echocardiography with with color-flow / pulse-wave Doppler Moderate sedation Diagnosis: atrial fibrillation Indications: atrial fibrillation Image Quality: good Findings: after discussing risks, benefits and alternatives of the procedure patient agreeable via verbal and written informed consent. Risks discussed include esophageal rupture perforation, shocked into a more problematic heart rhythm, stroke, skin a trace her burn, bleeding, can not pain, infection, . After establishing continuous telemetry monitoring, pulse oxygenation and show blood pressure assessments time-out was taken procedure was initiated. Procedure start time 9:20 a.m. Procedure stop time 9:32 a.m. A total of 4 mg of Versed and 100 mcg of fentanyl were given in divided dosages. Hurricaine spraythe hypopharynx x2 for topical anesthetic. Medications were administered and patient was monitored by Natasha funez RN Complications: None Blood loss: None Findings: ANABELL shows normal left ventricular size and function ejection fraction 55-60%. Normal right ventricular size and function. Mild left atrial enlargement. Normal right atrial size. Atrial septum was intact without color flow evidence of shunting. Aortic root measures 3.2 cm in diameter. No pericardial effusion. Mitral valve appears normal with mild mitral regurgitation. Tricuspid valve is normal with mild tricuspid regurgitation. Pulmonic valve is normal without significant pulmonic insufficiency. Aortic valve is trileaflet and with trivial aortic insufficiency. The left atrial appendage is well visualized. pulse-waveVelocities of 80 centimeters/second. Within the left atrial appendage itself there is suspicion of a thrombus although very will above may simply be a pectinate muscle but given his relative asymptomatic status and his tolerance to atrial fibrillation at this point, a do not feel like there is a need to risk stroke if this is a thrombus. Cardioversion: Aborted Conclusions: 1. Normal left ventricular size and function ejection fraction 55-60% 2. Mild mitral regurgitation 3. Mild tricuspid regurgitation 4.mild left atrial enlargement 5. Possible left atrial appendage thrombus 6. Moderate sedation Plan : will be to continue anticoagulation uninterrupted for additional 3 weeks and then perform a cardioversion at that time.
== END 2023-11-30 11:25 | disposition home or self-care (01) ==
PROVIDERS: PCP Internal Medicine; Visit Provider Internal Medicine Cardiovascular Disease
PROC: (CPT 93312; principal; 2023-11-30 08:00)
DX: I48.0 Paroxysmal atrial fibrillation (principal); R93.1 Abnormal findings on diagnostic imaging of heart and coronary circulation; I08.1 Rheumatic disorders of both mitral and tricuspid valves; N40.0 Benign prostatic hyperplasia without lower urinary tract symptoms; E78.5 Hyperlipidemia, unspecified; Z79.01 Long term (current) use of anticoagulants; Z79.82 Long term (current) use of aspirin; Z86.718 Personal history of other venous thrombosis and embolism
CPT/HCPCS: 36415; 80048; 83735; 93312; 93320; 93325; J2250; J3010; J7030